=== PATIENT | female | born 2000 | race Caucasian/White ===

== ENCOUNTER 2020-07-28 22:11 | Emergency (ER) | payer OTHER ==
[~2020-07-28] VITALS: Ht 167.6 cm; Wt 76.7 kg
[2020-07-28 22:16] VITALS: Ht 167.6 cm; Wt 76.7 kg
[2020-07-28 23:47] VITALS: BP 105/55
== END 2020-07-28 23:56 | disposition home or self-care (01) ==
LOC: ED 22:11
DX: R00.2 Palpitations (principal); F41.9 Anxiety disorder, unspecified; F12.90 Cannabis use, unspecified, uncomplicated